=== PATIENT | female | born 1990 | race African-American/Black ===

== ENCOUNTER 2018-12-27 15:08 | Observation (INO) ==
[2018-12-27] MEDS ORDERED: ONDANSETRON 4 MG/2 ML VIAL IV PRN (16:28)
[2018-12-27] MEDS ORDERED: PROMETHAZINE 25 MG/1 ML VIAL IM PRN (16:28)
[2018-12-27] MEDS: HYDROmorphone 2 MG/1 ML VIAL IV PRN ×2 (17:41→21:43)
[2018-12-27 18:02] LABS: Basophils % 0.1 % (0.0-0.8); Hematocrit 39.5 VOL% (35.7-47.0); Hemoglobin 12.7 GM/DL (12.0-16.0); Immature Granulocytes % 0.5 %; Immature Granulocytes Absolute 0.07 #; Lymphocytes # 0.6 10*3/uL (1.4-4.0); Lymphocytes % 4.3 % (21.3-54.2); Mean Corpuscular HGB Conc 32.2 GM/DL (32-36); Mean Corpuscular Volume 93.4 FL (87-102); Mean Platelet Volume 10.7 FL (9.6-12.0); Monocytes % 0.4 % (1.7-12.7); Neutrophils % 94.7 % (38.7-73.9); Platelet Count 223 T/CUMM (130-400); Red Blood Count 4.23 MC/CUMM (3.8-5.5); Red Cell Distribution Width 11.9 % (9.3-17.3); White Blood Count 13.3 T/CUMM (4-12)
[2018-12-27 18:22] LABS: Osmolality,Calculated 276.5 MOS/KG (273-304)
[2018-12-27] MEDS: KETOROLAC 30 MG/1 ML VIAL IV SCH (18:25)
[2018-12-27] MEDS: LACTATED RINGERS 1,000 ML IV SCH (18:26)
[2018-12-27 18:34] LABS: Lymphocytes 5 % (20-55); Platelet Estimate Normal; Segmented Neutrophils 95 % (50-85); Total Cells Counted 100
[2018-12-28] MEDS: LACTATED RINGERS 1,000 ML IV SCH ×4 (00:30→18:01)
[2018-12-28] MEDS: KETOROLAC 30 MG/1 ML VIAL IV SCH ×4 (01:48→18:51)
[2018-12-28] MEDS: HYDROmorphone 2 MG/1 ML VIAL IV PRN (04:15)
[2018-12-28 04:44] LABS: Basophils % 0.1 % (0.0-0.8); Hematocrit 37.5 VOL% (35.7-47.0); Hemoglobin 12.6 GM/DL (12.0-16.0); Immature Granulocytes % 0.4 %; Immature Granulocytes Absolute 0.04 #; Lymphocytes # 1.6 10*3/uL (1.4-4.0); Lymphocytes % 14.4 % (21.3-54.2); Mean Corpuscular HGB Conc 33.6 GM/DL (32-36); Mean Corpuscular Volume 91.9 FL (87-102); Mean Platelet Volume 12.2 FL (9.6-12.0); Monocytes % 3.7 % (1.7-12.7); Neutrophils % 81.4 % (38.7-73.9); Platelet Count 186 T/CUMM (130-400); Red Blood Count 4.08 MC/CUMM (3.8-5.5); Red Cell Distribution Width 11.6 % (9.3-17.3)
[2018-12-28 04:47] LABS: Osmolality,Calculated 275.5 MOS/KG (273-304)
[2018-12-28] MEDS: METHOCARBAMOL 500 MG TABLET PO SCH ×2 (08:11→22:13)
[2018-12-28] MEDS: ENOXAPARIN 40 MG/0.4 ML SYRINGE SUBCUT SCH (08:12)
[2018-12-29] MEDS: LACTATED RINGERS 1,000 ML IV SCH ×2 (00:30→02:23)
[2018-12-29] MEDS: KETOROLAC 30 MG/1 ML VIAL IV SCH ×3 (00:52→12:38)
[2018-12-29] MEDS ORDERED: ALBUTEROL 2.5 MG/3 ML NEB RESP TX PRN (07:00)
[2018-12-29] MEDS: METHOCARBAMOL 500 MG TABLET PO SCH (09:25)
[2018-12-29] MEDS: ENOXAPARIN 40 MG/0.4 ML SYRINGE SUBCUT SCH (09:25)
[2018-12-29 11:18] VITALS: BP 113/66
== END 2018-12-29 13:20 | disposition home or self-care (01) ==
LOC: N.3E
PROVIDERS: ADMIT Surgery; ATTEND Surgery